=== PATIENT | female | born 1930 | race Caucasian/White ===

== ENCOUNTER 2018-05-16 13:40 | Inpatient (IN) | payer MEDICARE, OTHER ==
[~2018-05-16] VITALS: Ht 170.2 cm; Wt 80.7 kg
[2018-05-16] MEDS ORDERED: ALBUTEROL SULF 0.083% NEB SOLN 3 ML NEB NEB STA (13:58)
[2018-05-16] MEDS ORDERED: IPRATROPIUM BROMIDE 0.02% 2.5 ML NEB NEB STA (13:58)
[2018-05-16] MEDS ORDERED: CEFTRIAXONE SOD 1 GM/NS 50 ML 50 ML IV ONE (14:00)
[2018-05-16] MEDS ORDERED: SODIUM CHLORIDE FLUSH 10 ML SYR INJ PRN (14:00)
[2018-05-16] MEDS ORDERED: CLONIDINE HCL 0.1 MG TAB PO ONE (14:15)
--- NOTE | 2018-05-16 14:28 | NUR ---
AMBULATORY TO RESTROOM.
--- NOTE | 2018-05-16 15:51 | Diagnostic Imaging Report ---
Frontal and lateral views of the chest. HISTORY: Coughing, wheezing COMPARISON: None available. DISCUSSION: Lungs: Mild prominence of the peribronchial interstitial markings. No evidence of a consolidative pneumonia or pulmonary alveolar edema. Pleura: No pleural effusion or pneumothorax. Heart and mediastinum: The cardiomediastinal silhouette appears unremarkable. Bones and soft tissues: Diffusely decreased mineralization of the osseous structures limits bone detail. IMPRESSION: 1. Findings which can be seen in setting of a nonspecific bronchitis. 2. No consolidative pneumonia. 3. Diffuse osseous demineralization, recommend correlation with bone densitometry, if not previously performed this may be obtained on a nonemergent follow-up basis. Signed by: Dr. Adrien Castle D.O., M.M.M. on 05/16/2018 3:47 PM
[2018-05-16] MEDS ORDERED: ONDANSETRON HCL INJ 2MG/ML 2ML 2 MG/ML VIAL IV PRN (16:00)
[2018-05-16] MEDS ORDERED: IBUPROFEN 200 MG TAB PO PRN (16:00)
[2018-05-16] MEDS ORDERED: DIPHENHYDRAMINE HCL INJ 50 MG/ML VIAL IV PRN (16:00)
[2018-05-16] MEDS ORDERED: CLONIDINE HCL 0.1 MG TAB PO PRN (16:00)
[2018-05-16] MEDS ORDERED: LEVOFLOXACIN 500MG/D5W 100ML IV SCH (16:00)
[2018-05-16] MEDS ORDERED: ENALAPRILAT IV INJ 1.25 MG/ML VIAL IV PRN (16:00)
[2018-05-16] MEDS ORDERED: ACETAMINOPHEN 325 MG TAB PO PRN (16:00)
[2018-05-16] MEDS ORDERED: DEXTROSE 50% SYRINGE 50 ML IV PRN (16:15)
[2018-05-16] MEDS: INSULIN REGULAR, HUMAN 100 UNIT/1 ML 3ML VIAL SQ SCH ×2 (16:30→22:15)
[2018-05-16] MEDS: FAMOTIDINE 20 MG TAB PO SCH (16:30)
--- OUTSIDE RECORDS SUMMARY | 2018-05-16 16:39 | XMS REPORT ---
Author Author [facility] Address Unknown Phone Unavailable Care Team Providers Care Infection Control Nurse Name Role Phone Darian BLAND Unavailable Unavailable Problems This patient has no known problems. Allergies, Adverse Reactions, Alerts This patient has no known allergies or adverse reactions. Medications This patient has no known medications. Results Test Description Test Time Test Comments Text Results Atomic Results Result Comments CXR 2 VIEW - [facility] 2018-05-16 15:45:00 [place] [address] Patient Name: DALE DOUGHERTY MR #: [id number] : 1930 Age/Sex: 87/F Req #: [id number] Adm Physician: Ordered by: YUE BLAND MD Report #: [id number] Location: [facility] Room/Bed: Procedure: [id number] HOPD/CXR 2 [facility]IEW - [facility] Exam Date: 05/16/18 Exam Time: 1533 REPORT STATUS: Signed Frontal and lateral views of the chest. HISTORY: Coughing, wheezing COMPARISON: None available. DISCUSSION: Lungs: Mild prominence of the peribronchial interstitial markings. No evidence of a consolidative pneumonia or pulmonary alveolar edema. Pleura: No pleural effusion or pneumothorax. Heart and mediastinum: The cardiomediastinal silhouette appears unremarkable. Bones and soft tissues: Diffusely decreased mineralization of the osseous structures limits bone detail. IMPRESSION: 1. Findings which can be seen in setting of a nonspecific bronchitis. 2. No consolidative pneumonia. 3. Diffuse osseous demineralization, recommend correlation with bone densitometry, if not previously performed this may be obtained on a nonemergent follow-up basis. Signed by: Dr. Radha Johnson D.O., M.M.M. on 05/16/2018 3:47 PM Dictated By: RADHA JOHNSON DO [id number] Transcribed By: AMANDA on 05/16/18 1547 COPY TO: YUE BLAND MD
--- NOTE | 2018-05-16 17:27 | NUR ---
report to ems.
--- NOTE | 2018-05-16 17:50 | NUR ---
Recvd patient from freestanding ER via EMS, AAOx3, denies any pain, not in any distress, IV line is intact, daughter @ bed side
[2018-05-16 17:55] VITALS: BP 148/68
[2018-05-16 18:13] VITALS: BP 148/68
[2018-05-16] MEDS ORDERED: TRIAMTERENE-HCTZ1 EA PO (18:25)
[2018-05-16] MEDS ORDERED: LISINOPRIL10 MG PO (18:25)
[2018-05-16] MEDS ORDERED: NEXIUM40 MG PO (18:25)
[2018-05-16] MEDS ORDERED: CLONIDINE HCL0.1 MG PO (18:25)
[2018-05-16] MEDS ORDERED: CALCIUM 600 MG1 EACH PO (18:25)
[2018-05-16] MEDS ORDERED: ATENOLOL50 MG PO (18:25)
[2018-05-16] MEDS ORDERED: ATORVASTATIN CA20 MG PO (18:25)
[2018-05-16] MEDS: ALBUTEROL/IPRATROPIUM 3 ML NEB NEB SCH (19:00)
--- NOTE | 2018-05-16 19:00 | NUR ---
received report from day nurse. patient is resting comfortably in bed. bed is in lowest position. will continue to monitor patient.
[2018-05-16 19:22] LABS: CREATINE KINASE 452 IU/L (29-168)
[2018-05-16 19:30] VITALS: BP 135/65
[2018-05-16] MEDS ORDERED: SODIUM CHLORIDE 0.9% 250ML 250 ML ONE (19:55)
[2018-05-16 20:00] VITALS: BP 135/65
[2018-05-16] MEDS: LEVOFLOXACIN 500MG/D5W 100ML 100 ML IV SCH (20:02)
[2018-05-16] MEDS ORDERED: ZOLPIDEM TARTRATE 5 MG TAB PO PRN (21:00)
[2018-05-16] MEDS: BENZONATATE 100 MG CAP PO PRN (23:18)
[2018-05-17] VITALS (7 sets, daily range): BP systolic 137–196; BP diastolic 62–91
[2018-05-17] MEDS: ALBUTEROL/IPRATROPIUM 3 ML NEB NEB SCH ×4 (01:00→23:52)
[2018-05-17 03:33] LABS: CREATINE KINASE 337 IU/L (29-168)
--- NOTE | 2018-05-17 07:00 | NUR ---
Report given to day nurse. patient is resting comfortably in bed. bed is in lowest position and call calero is within reach. will continue to monitor patient.
[2018-05-17] MEDS: INSULIN REGULAR, HUMAN 100 UNIT/1 ML 3ML VIAL SQ SCH ×4 (07:30→21:00)
--- NOTE | 2018-05-17 07:46 | NUR ---
Patient up in bed, Alert with no distress, denies any chest pain or SOB, eating break fast, daughter at be side Call light in reach
[2018-05-17] MEDS: FAMOTIDINE 20 MG TAB PO SCH (07:56)
[2018-05-17 07:57] LABS: BASOPHILS % 0.8 % (0.0-1.0); EOSINOPHILS # (AUTO) 0.2 (0.0-0.4); EOSINOPHILS % 4.7 % (0.0-6.0); HEMATOCRIT 36.4 % (34.2-44.1); HEMOGLOBIN 12.5 g/dL (12.0-16.0); LYMPHOCYTES # (AUTO) 0.9 (1.0-3.2); LYMPHOCYTES % 23.8 % (18.0-39.1); MEAN CORPUSCULAR HEMOGLOBIN 28.7 pg (28-32); MEAN CORPUSCULAR HGB CONC 34.3 g/dL (31-35); MEAN CORPUSCULAR VOLUME 83.7 fL (81-99); MONOCYTES # (AUTO) 0.4 (0.2-0.8); NEUTROPHILS # (AUTO) 2.2 (2.1-6.9); NEUTROPHILS % 58.1 % (38.7-80.0); PLATELET COUNT 199 x10e3/uL (140-360); RED BLOOD COUNT 4.35 x10e6/uL (3.6-5.1)
[2018-05-17 08:23] LABS: ANION GAP 14.1 mmol/L (8-16); BLOOD UREA NITROGEN 13 mg/dL (7-26); BUN/CREATININE RATIO 19 (6-25); CALCIUM 9.2 mg/dL (8.4-10.2); CARBON DIOXIDE 26 mmol/L (22-29); CHLORIDE 97 mmol/L (98-107); CREATININE, SERUM 0.68 mg/dL (0.57-1.11); EST GLOMERULAR FILTRATION RATE > 60 ML/MIN (60-); GLUCOSE 118 mg/dL (74-118); POTASSIUM 4.1 mmol/L (3.5-5.1); SODIUM 133 mmol/L (136-145)
[2018-05-17] MEDS: BENZONATATE 100 MG CAP PO PRN ×2 (09:01→17:00)
--- NOTE | 2018-05-17 11:17 | NUR ---
Nutrition Screen Note RD Recommendation for Physician: Continue diet as ordered Plan of Care: RD following, monitoring for adequacy and tolerance Nutrition reason for involvement: Nutrition Risk Trigger-MST Primary Diagnose(s): bronchitis, SOB Ht:67 in Wt:177.06lbs BMI:27.7 kg/m2 IBW:135lbs RD Assessment:(05/17/2018) Initial encounter with patient. Pt denies any nausea, vomiting or diarrhea. 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 Pt is reporting a good PO intake. Current Diet: Cardiac Malnutrition Evaluation (05/17/2018) The patient does not meet criteria for a specified degree of malnutrition at this time. Will re-evaluate at follow-up as appropriate. Diet Education Needs Assessment: Diet education not indicated. Diet Adequacy: Meeting calorie needs, Meeting protein needs, Meeting fluid needs Tolerance: Tolerating PO Nutrition Care Level:Michael Gallardo RD, LD, CNSC
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
--- NOTE | 2018-05-17 12:25 | Diagnostic Imaging Report ---
EXAM: CT Chest WITHOUT contrast 05/17/2018 10:12 AM INDICATION: ^cough ^[id number] ^1100 COMPARISON: Chest radiograph 05/16/2018 TECHNIQUE: Chest was scanned utilizing a multidetector helical scanner from the lung apex through the level of the adrenal glands without administration of IV contrast. Absence of intravenous contrast decreases sensitivity for detection of lymphadenopathy and vascular pathology. Coronal and sagittal reformations were obtained. Routine protocol was performed. IV CONTRAST: None COMPLICATIONS: None RADIATION DOSE: Total DLP: 528 mGy*cm Estimated effective dose: (DLP x 0.015 x size factor) mSv CTDIvol has been reviewed. It is below the limits set by the Radiation Protocol Committee (RPC). FINDINGS: LINES/ TUBES: None. LUNGS AND AIRWAYS: Mildly lobulated part solid pleural-based nodule in the left upper lobe measuring 20 x 12 mm on series 3, image 33. Small consolidation in the lingula and left lower lobe adjacent to the hemidiaphragm with associated bronchiectasis and volume loss. A 17 mm mildly lobulated solid nodule is seen in the right lower lobe, which is extending into the pleural space. Mild to moderate bilateral lower lobe predominant bronchiectasis with peribronchial wall thickening and surrounding patchy areas of groundglass opacities. PLEURA: The pleural spaces are clear. HEART AND MEDIASTINUM: The thyroid gland is normal. Few nonspecific noncalcified bilateral mediastinal lymph nodes with the largest in the right lower paratracheal region measuring 1.1 cm on series 2, image 53. There is also a partially calcified round soft tissue lesion in the left hilar on series 2, image 72 measuring 1.5 cm, which may represent a calcified lymph node. Biatrial enlargement. There is no pericardial effusion. Severe calcifications of the mitral annulus. Ectasia of the ascending thoracic aorta (3.9 cm). Mild scattered atherosclerotic calcifications of the thoracic aorta. The main pulmonary artery is normal in size, measuring 2.7 cm in diameter. Small hiatal hernia. UPPER ABDOMEN: Unremarkable. BONES: The visualized bony thorax is within normal limits. SOFT TISSUES: Unremarkable. IMPRESSION: Overall CT findings are suggestive of multifocal pneumonia. The 20 mm left upper lobe and 17 mm right lower lobe nodules are indeterminate and cannot exclude malignancy. Recommend either CT chest without contrast in 3 months, PET/CT, or biopsy according to clinical suspicious. Signed by: Dr. Aarti Lundberg M.D. on 05/17/2018 12:21 PM
[2018-05-17 14:36] LABS: CREATINE KINASE MB 1.7 ng/mL (0-5.0)
[2018-05-17] MEDS: LEVOFLOXACIN 500MG/D5W 100ML 100 ML IV SCH (17:00)
[2018-05-17] MEDS: CLONIDINE HCL 0.1 MG TAB PO SCH (17:30)
--- NOTE | 2018-05-17 18:48 | NUR ---
patient resting in bed, alert with no distress, denies any pain, call light in reach
[2018-05-17] MEDS: BUDESONIDE 0.5MG/2 ML NEB INH SCH (19:00)
--- NOTE | 2018-05-17 19:00 | NUR ---
RECEIVED REPORT FROM DAY NURSE. PATIENT IS RESTING COMFORTABLY IN BED. BED IS IN LOWEST POSITION AND CALL ALVAREZ IS WITHIN REACH. WILL CONTINUE TO MONITOR PATIENT.
[2018-05-17] MEDS: ATORVASTATIN 20 MG TAB PO SCH (21:17)
[2018-05-18] VITALS (8 sets, daily range): BP systolic 122–153; BP diastolic 63–67
[2018-05-18] MEDS: BUDESONIDE 0.5MG/2 ML NEB INH SCH (00:22)
[2018-05-18] MEDS: ALBUTEROL/IPRATROPIUM 3 ML NEB NEB SCH ×3 (02:27→13:20)
[2018-05-18 05:05] LABS: BASOPHILS % 1.1 % (0.0-1.0); EOSINOPHILS # (AUTO) 0.1 (0.0-0.4); EOSINOPHILS % 3.1 % (0.0-6.0); HEMATOCRIT 35.2 % (34.2-44.1); HEMOGLOBIN 11.9 g/dL (12.0-16.0); LYMPHOCYTES # (AUTO) 0.8 (1.0-3.2); MEAN CORPUSCULAR HEMOGLOBIN 28.6 pg (28-32); MEAN CORPUSCULAR HGB CONC 33.8 g/dL (31-35); MEAN CORPUSCULAR VOLUME 84.6 fL (81-99); MONOCYTES # (AUTO) 0.4 (0.2-0.8); MONOCYTES % 10.7 % (4.4-11.3); NEUTROPHILS # (AUTO) 2.2 (2.1-6.9); NEUTROPHILS % 61.3 % (38.7-80.0); PLATELET COUNT 204 x10e3/uL (140-360); RED BLOOD COUNT 4.16 x10e6/uL (3.6-5.1); RED CELL DISTRIBUTION WIDTH 13.9 % (11.7-14.4)
[2018-05-18 05:32] LABS: BLOOD UREA NITROGEN 10 mg/dL (7-26); BUN/CREATININE RATIO 15 (6-25); CALCIUM 9.4 mg/dL (8.4-10.2); CARBON DIOXIDE 24 mmol/L (22-29); CHLORIDE 96 mmol/L (98-107); CREATININE, SERUM 0.65 mg/dL (0.57-1.11); EST GLOMERULAR FILTRATION RATE > 60 ML/MIN (60-); GLUCOSE 140 mg/dL (74-118); SODIUM 131 mmol/L (136-145)
--- NOTE | 2018-05-18 07:00 | NUR ---
Received patient mid fowlers position, side rails upx2, call light within reach, family at bedside. Resting with eyes closed. Arousable to verbal stimuli. Respirations even and unlabored. Will continue to monitor.
--- NOTE | 2018-05-18 07:02 | NUR ---
REPORT GIVEN TO DAY NURSE. PATIENT IS RESTING COMFORTABLY IN BED. BED IS IN LOWEST POSITION AND CALL ALVAREZ IS WITHIN REACH.
[2018-05-18] MEDS: PANTOPRAZOLE SOD 40 MG TABEC PO SCH (08:44)
[2018-05-18] MEDS: TRIAMTERENE/HCTZ 37.5-25 MG TAB PO SCH (08:47)
[2018-05-18] MEDS: CLONIDINE HCL 0.1 MG TAB PO SCH ×2 (08:47→15:50)
[2018-05-18] MEDS: INSULIN REGULAR, HUMAN 100 UNIT/1 ML 3ML VIAL SQ SCH ×4 (08:48→20:58)
[2018-05-18] MEDS: ATENOLOL 50 MG TAB PO SCH (08:48)
[2018-05-18] MEDS ORDERED: DOXYCYCLINE HYCLATE TABLET 100 MG TAB PO SCH (10:30)
[2018-05-18] MEDS: LEVOFLOXACIN 500MG/D5W 100ML 100 ML IV SCH (15:50)
--- NOTE | 2018-05-18 18:00 | NUR ---
Received pt from [facility] at this time. 0 s/s of acute distress noted. Denies any pain at this time.
--- NOTE | 2018-05-18 18:02 | NUR ---
Report given to Roseann Adam RN of patient's status. Patient transferred via wheelchair to room 299. Accompanied by daughter. No s/s of acute distress noted.
--- NOTE | 2018-05-18 19:25 | NUR ---
Completed rounds with morning nurse. Pt lying in bed HOB 30 degrees. Pt denies pain at this time. No acute distress noted. Call calero within reach. Bed low and locked. Will continue to monitor.
[2018-05-18] MEDS: ATORVASTATIN 20 MG TAB PO SCH (20:57)
[2018-05-18] MEDS: GUAIFENESIN/DEXTROMETHORPHAN LIQD 5 ML UDC NG PRN (23:47)
[2018-05-19] VITALS: BP 140/96
--- NOTE | 2018-05-19 02:35 | NUR ---
Resting quietly with eyes closed. Lying left side HOB 30 degrees. Resp even and unlabored. No distress noted. Call calero within reach
[2018-05-19 04:00] VITALS: BP 149/85
[2018-05-19] MEDS: ALBUTEROL/IPRATROPIUM 3 ML NEB NEB SCH (07:00)
[2018-05-19] MEDS: BUDESONIDE 0.5MG/2 ML NEB INH SCH (07:00)
--- NOTE | 2018-05-19 07:08 | NUR ---
RECEIVED PATIENT RESTING IN BED. NO ACUTE DISTRESS NOTED. CALL LIGHT WITHIN REACH. BED IN THE LOWEST POSITION.
[2018-05-19 07:50] VITALS: BP 134/65
[2018-05-19 08:11] VITALS: BP 134/65
[2018-05-19] MEDS: PANTOPRAZOLE SOD 40 MG TABEC PO SCH (08:40)
[2018-05-19] MEDS: ATENOLOL 50 MG TAB PO SCH (08:40)
[2018-05-19] MEDS: TRIAMTERENE/HCTZ 37.5-25 MG TAB PO SCH (08:40)
[2018-05-19] MEDS: CLONIDINE HCL 0.1 MG TAB PO SCH (08:40)
[2018-05-19] MEDS: INSULIN REGULAR, HUMAN 100 UNIT/1 ML 3ML VIAL SQ SCH ×2 (08:41→11:30)
[2018-05-19 11:55] VITALS: BP 163/69
[2018-05-19] MEDS: GUAIFENESIN/DEXTROMETHORPHAN LIQD 5 ML UDC NG PRN (13:41)
--- NOTE | 2018-05-19 15:08 | Discharge Summary ---
FINAL DIAGNOSES 1. Cough. 2. Pneumonia. 3. Lung nodules, 2 cm on the chest. 4. Hypertension. 5. Acid reflux disease. ADMISSION HISTORY AND HOSPITAL COURSE: Ms. Phelps is an 87-year-old female. She was admitted with intractable cough going on for the last week. CT of the chest which was done in the hospital showed a lung nodule and findings likely due to multilobar pneumonia. The patient has been continued on IV antibiotics. Patient is doing very well. They live in [place], and wants to follow up there. I have recommended that the patient will need a followup CT scan to document the resolution of nodule versus a followup of the nodules, and plus-minus biopsy as they are more than 1 cm. May need biopsy versus PET scan. This was discussed with the patient's daughter at bedside in detail. I recommend they continue all the home medications except lisinopril as that may be causing a cough. DISCHARGE MEDICATIONS: List reviewed. ROLLY MALIK MD Job#: [id number] DE
--- NOTE | 2018-05-19 15:31 | NUR ---
RECEIVED DC ORDER FROM MD, PATIENT IS IN STABLE CONDITION. DENIES PAIN OR DISCOMFORT. A CD OF CT GIVEN TO PATIENT REQUESTED BY PHYSICIAN. IV TO RIGHT FOREARM DC'D WITH TIP INTACT, PRESSURE APPLIED TO SITE, NO BLEEDING NOTED. DISCHARGE TEACHING PROVIDED TO PATIENT AND DAUGHTER, THEY BOTH VERBALIZED UNDERSTANDING. PATIENT ACCOMPANIED TO PRIVATE AUTO VIA WHEELCHAIR.
--- NOTE | 2018-05-19 15:46 | NUR ---
PT DISCHARGING HOME. EXPLAINED IMM LETTER. PT VERBALIZED UNDERSTANDING. IMM LETTER WAS SIGNED AND COPY TO PT. AND COPY TO CHART.
[2018-05-19] MEDS ORDERED: ATORVASTATIN 40 MG TAB PO SCH (21:00)
== END 2018-05-19 15:23 | disposition home or self-care (01) | DRG 195 ==
LOC: FSED 13:40 → ERHOLD 15:57 → UNDOADMOB 16:36 → ERHOLD 16:36 → IMCU 17:50 → OBSVTOIN 05-18 16:49 → MED/SURG3 05-18 18:06
PROVIDERS: ADMIT Internal Medicine; ATTEND Internal Medicine
DX: J18.1 Lobar pneumonia, unspecified organism (principal); I11.0 Hypertensive heart disease with heart failure; I50.9 Heart failure, unspecified; E11.9 Type 2 diabetes mellitus without complications; E78.5 Hyperlipidemia, unspecified; K21.9 Gastro-esophageal reflux disease without esophagitis; R91.8 Other nonspecific abnormal finding of lung field; Z88.5 Allergy status to narcotic agent; Z88.8 Allergy status to other drugs, medicaments and biological substances; Z91.048 Other nonmedicinal substance allergy status; Z79.4 Long term (current) use of insulin
CPT/HCPCS: 36415; 71046; 71250; 80048; 80053; 81003; 82550; 82553; 82948; 83880; 84484; 85025; 87040; 87070; 87205; 93005; 94640; 99284; G0378; J0696; J1200; J1956; J2405; J7050